=== PATIENT | male | born 1970 | race Caucasian/White ===

== ENCOUNTER → 2020-12-14 | Outpatient (CLI) | payer SELFPAY ==
--- NOTE | 2020-12-15 13:12 | ECHOF ---
Referral Reason:R01.1 Cardiac murmur, unspecified MEASUREMENTS -------- HEIGHT: 182.9 cm WEIGHT: 95.3 kg BP: RVIDd: 3.4 cm (< 3.3) IVSd: 1.4 cm (0.6 - 1.1) LVIDd: 4.1 cm (3.9 - 5.3) LVPWd: 1.7 cm (0.6 - 1.1) IVSs: 1.7 cm LVIDs: 3.4 cm LVPWs: 1.4 cm LAESV Index (A-L): 32.78 ml/m Ao Diam: 3.3 cm (2.0 - 3.7) AV Cusp: 2.2 cm (1.5 - 2.6) MV EXCURSION: 25.510 mm (> 18.000) MV EF SLOPE: 78 mm/s (70 - 150) EPSS: 0.2 cm MV E Fabrizio: 0.74 m/s MV DecT: 198 ms MV A Fabrizio: 0.60 m/s MV E/A Ratio: 1.23 AV maxP.75 mmHg AV meanP.93 mmHg RAP: 5.00 mmHg RVSP: 37.42 mmHg FINDINGS -------- Sinus rhythm. This was a technically adequate study. The left ventricular size is normal. There is moderate concentric left ventricular hypertrophy. S igmoid shaped septum with focal hypertrophy of the basal septum. The remaining wall thickness is norm al. Moderate DANNI with peak LVOT gradient of 53.43mmHg. The right ventricle is normal in size. LA is midly dilated 29-33ml/m2. The right atrial size is normal. The aortic valve is trileaflet and appears structurally normal. There is mild aortic regurgitation. The mitral valve is normal. Mild mitral regurgitation is present. The tricuspid valve appears structurally normal. Mild tricuspid regurgitation present. The right ventricular systolic pressure, as measured by Doppler, is 37.42mmHg. Trace/mild (physiologic) pulmonic regurgitation. The aortic root size is normal. There is no pericardial effusion. CONCLUSIONS -------- 1. The left ventricular size is normal. 2. There is moderate concentric left ventricular hypertrophy. 3. Moderate DANNI with peak LVOT gradient of 53.43mmHg. 4. LA is midly dilated 29-33ml/m2. 5. There is mild aortic regurgitation. 6. Mild mitral regurgitation is present. 7. Mild tricuspid regurgitation present. 8. Trace/mild (physiologic) pulmonic regurgitation. 9. There is no pericardial effusion. TRAVEL OT: Annabelle Peters RDCS
== END | disposition home or self-care (01) ==
LOC: RADECHMAIN 12:12
PROVIDERS: ATTEND Family Medicine
DX: I08.3 Combined rheumatic disorders of mitral, aortic and tricuspid valves (principal); I37.1 Nonrheumatic pulmonary valve insufficiency
CPT/HCPCS: 93306

== ENCOUNTER → 2024-04-01 | Outpatient (CLI) | payer BC ==
--- NOTE | 2024-04-03 16:58 | US ---
EXAMINATION TYPE: US abdomen complete DATE OF EXAM: 04/01/2024 COMPARISON: NONE CLINICAL INDICATION: Male, 53 years old with history of R10.11 RIGHT UPPER QUADRANT PAIN; pain on and off for 1 month TECHNIQUE: Multiple sonographic images of the abdomen are obtained. FINDINGS: EXAM MEASUREMENTS: Liver Length: 17.6 cm. Normal less than 15.5 cm. Mild hepatomegaly is present Gallbladder Wall: 2.3 cm CBD: 0.4 cm Spleen: 12.6 cm Right Kidney: 10.2 x 4.8 x 5.5 cm Left Kidney: 10.4 x 5.0 x 5.6 cm Pancreas: not seen due to bowel gas Liver: intercostal views due to bowel gas Gallbladder: echogenic foci on anterior wall may represent polyps versus other etiology, possible de bris also noted within Debris within the gallbladder. Wall adherent debris or polyps may be presen t. No gallbladder wall thickening is evident. No pericholecystic fluid is evident. Evidence for sonographic Turpin's sign: no CBD: wnl Spleen: wnl Right Kidney: wnl Left Kidney: wnl Upper IVC: wnl Abd Aorta: wnl IMPRESSION: 1. Chronic appearing changes within the gallbladder. 2. Mild hepatomegaly
== END | disposition home or self-care (01) ==
LOC: RADUSWWP 09:04
PROVIDERS: ATTEND Family Medicine
DX: R16.0 Hepatomegaly, not elsewhere classified (principal); K82.8 Other specified diseases of gallbladder
CPT/HCPCS: 76700